=== PATIENT | female | born 1950 | race Hispanic/Latino ===

== ENCOUNTER 2017-11-05 11:01 | Outpatient (CLI) | payer MEDICARE ==
--- NOTE | 2017-11-05 12:58 | XRay Report ---
Cervical spine: Pain. The patient has bilateral pedicle screws extending from C2-T1. There is a crossing bridge attaching to the rods at C6-7. Anterior traction spurs are noted at the C2-3, C4-5 and bony bridging from C5-C7. The vertebral height and alignment are generally maintained. The bones do appear somewhat demineralized. No prevertebral swelling. Impression: Spondylosis and extensive pedicle hardware as described. No acute finding suspected.
== END 2017-11-05 11:02 | disposition home or self-care (01) ==
LOC: SPVIMAG 11:01
PROVIDERS: ATTEND Physical Medicine & Rehabilitation
DX: M47.892 Other spondylosis, cervical region (principal)
CPT/HCPCS: 72052